=== PATIENT | male | born 1960 ===

== ENCOUNTER 2017-09-20 05:24 | Inpatient (IN) ==
[2017-09-18 13:16] LABS: Basophils # 0.1 10*3/uL (0.0-0.2); Basophils % 0.9 % (0.0-0.8); Eosinophils # 0.2 10*3/uL (0.0-0.87); Eosinophils % 2.6 % (0.00-10.9); Hematocrit 36.8 VOL% (42.0-52.0); Hemoglobin 12.5 GM/DL (14.0-18.0); Immature Granulocytes % 0.3 %; Immature Granulocytes Absolute 0.02 #; Lymphocytes # 1.8 10*3/uL (1.4-4.0); Lymphocytes % 27.5 % (21.2-54.2); Mean Corpuscular Hemoglobin 30 PG (27-34); Mean Corpuscular Volume 87.2 FL (87-102); Mean Platelet Volume 8.9 FL (9.6-12.0); Monocytes % 15.1 % (1.7-12.7); Neutrophils # 3.5 10*3/uL (1.4-7.4); Neutrophils % 53.6 % (38.7-73.9); Platelet Count 330 T/CUMM (130-400); Red Blood Count 4.22 MC/CUMM (3.8-5.5); Red Cell Distribution Width 15.5 % (9.3-17.3); White Blood Count 6.5 T/CUMM (4-12)
[2017-09-18 13:26] LABS: INR 0.9; Partial Thromboplastin Time 25.9 SECS (0-40)
[2017-09-18 13:28] LABS: Apearance,Urine Slightly Hazy (Clear); Bilirubin,Urine Negative (Negative); Blood, Urine Negative (Negative); Glucose,Urine (UA) Negative (Negative); Ketones,Urine 5 mg/dL (Negative); Mucus,Urine Many /LPF (Occasional); Nitrite,Urine Negative (Negative); Protein,Urine Negative; RBC,Urine 1 /HPF (0-4); Squamous Epithelial Cell,Urine Occasional /HPF (0-10); Urine Color Amber (Yellow); Urine Specific Gravity 1.023 (1.001-1.035); WBC,Urine <1 /HPF (0-6)
[2017-09-18 13:34] LABS: Albumin 3.6 G/DL (3.4-5.0); Bilirubin,Total 0.7 MG/DL (0.2-1.0); Calcium 9.2 MG/DL (8.5-10.1); Osmolality,Calculated 278.4 MOS/KG (273-304); Potassium 4.4 MMOL/L (3.5-5.1); Total Protein 7.3 G/DL (6.4-8.3)
[2017-09-20] MEDS ORDERED: CLINDAMYCIN INJ 900 MG in PREMIX 1 EACH IV ONE (06:00)
[2017-09-20] MEDS ORDERED: VANCOMYCIN INJ 1,000 MG in SODIUM CHLORIDE 0.9% 250 ML IV ONE (06:00)
[2017-09-20] MEDS ORDERED: LACTATED RINGERS 1,000 ML IV SCH ×2 (06:00→12:30)
[2017-09-20] MEDS ORDERED: ceFAZolin 2,000 MG in PREMIX 1 EACH IV ONE (06:00)
[2017-09-20] MEDS ORDERED: VANCOMYCIN 1,000 MG VIAL ONE (08:00)
[2017-09-20] MEDS ORDERED: CLINDAMYCIN INJ 50 ML IV ONE (08:00)
[2017-09-20] MEDS ORDERED: TRANEXAMIC ACID 1,000 MG/10 ML VIAL IV ONE (12:02)
[2017-09-20] MEDS ORDERED: BACITRACIN OINT 0.9 GM PACK TOP ONE (12:09)
[2017-09-20] MEDS ORDERED: ONDANSETRON 4 MG/2 ML VIAL IV PRN (12:19)
[2017-09-20] MEDS ORDERED: MORPHINE 2 MG/1 ML SYRINGE IV PRN ×2 (12:19)
[2017-09-20] MEDS ORDERED: KETOROLAC 30 MG/1 ML VIAL IV PRN (12:19)
[2017-09-20] MEDS ORDERED: MAGNESIUM HYDROXIDE SUSP 30 ML UDCUP PO PRN (12:19)
[2017-09-20] MEDS ORDERED: DEXTROSE 50% 25 GM/50 ML VIAL IV PRN (12:24)
[2017-09-20] MEDS ORDERED: GLUCAGON 1 MG VIAL IM PRN (12:24)
[2017-09-20] MEDS ORDERED: MIDAZOLAM 2 MG/2 ML VIAL ONE (12:38)
[2017-09-20] MEDS ORDERED: PROPOFOL 200 MG/20 ML VIAL IV ONE (12:39)
[2017-09-20] MEDS ORDERED: SODIUM CHLORIDE 0.9% 250 ML IV ONE (12:40)
[2017-09-20] MEDS ORDERED: NEOSTIGMINE 10 MG/10 ML VIAL ONE (12:40)
[2017-09-20] MEDS ORDERED: PHENYLEPHRINE 10 MG/1 ML VIAL IV ONE (12:40)
[2017-09-20] MEDS ORDERED: ACETAMINOPHEN 1,000 MG/100 ML VIAL IV ONE (12:40)
[2017-09-20] MEDS ORDERED: SEVOFLURANE 1 UNIT/15 MINUTE INH ONE (12:40)
[2017-09-20] MEDS ORDERED: fentaNYL 100 MCG/2 ML VIAL ONE (12:40)
[2017-09-20] MEDS ORDERED: ROCURONIUM 100 MG/10 ML VIAL IV ONE (12:40)
[2017-09-20] MEDS ORDERED: GLYCOPYRROLATE 0.4 MG/2 ML VIAL ONE (12:41)
[2017-09-20] MEDS: POLYVINYL ALCOHOL 1.4% OPH SOLN 15 ML BOTTLE BOTH EYES SCH ×3 (14:53→20:33)
[2017-09-20] MEDS: INSULIN LISPRO 100 UNIT/ML SUBCUT SCH ×2 (16:47→20:31)
[2017-09-20] MEDS: ceFAZolin 2,000 MG in PREMIX 1 EACH IV SCH (17:32)
[2017-09-20] MEDS: LISINOPRIL 20 MG TABLET PO SCH (20:31)
[2017-09-20] MEDS ORDERED: VANCOMYCIN INJ 1,000 MG in SODIUM CHLORIDE 0.9% 250 ML IV SCH (22:30)
[2017-09-21] MEDS: ceFAZolin 2,000 MG in PREMIX 1 EACH IV SCH (03:45)
[2017-09-21 05:31] LABS: Basophils % 0.4 % (0.0-0.8); Eosinophils % 0.1 % (0.00-10.9); Hematocrit 34.1 VOL% (42.0-52.0); Hemoglobin 11.7 GM/DL (14.0-18.0); Immature Granulocytes % 0.5 %; Immature Granulocytes Absolute 0.05 #; Lymphocytes # 1.3 10*3/uL (1.4-4.0); Lymphocytes % 13.7 % (21.2-54.2); Mean Corpuscular HGB Conc 34.3 GM/DL (32-36); Mean Corpuscular Hemoglobin 30 PG (27-34); Mean Corpuscular Volume 86.1 FL (87-102); Mean Platelet Volume 9.1 FL (9.6-12.0); Monocytes # 1.2 10*3/uL (0.11-0.8); Monocytes % 12.5 % (1.7-12.7); Neutrophils # 6.7 10*3/uL (1.4-7.4); Neutrophils % 72.8 % (38.7-73.9); Platelet Count 278 T/CUMM (130-400); Red Blood Count 3.96 MC/CUMM (3.8-5.5); Red Cell Distribution Width 15.4 % (9.3-17.3); White Blood Count 9.2 T/CUMM (4-12)
[2017-09-21 05:55] LABS: Calcium 8.2 MG/DL (8.5-10.1); Osmolality,Calculated 275.5 MOS/KG (273-304); Potassium 3.7 MMOL/L (3.5-5.1)
[2017-09-21] MEDS ORDERED: metFORMIN 500 MG TABLET PO SCH (08:00)
[2017-09-21] MEDS ORDERED: ASPIRIN EC 81 MG TABLET PO SCH (09:00)
[2017-09-21] MEDS: INSULIN LISPRO 100 UNIT/ML SUBCUT SCH ×2 (10:26→12:06)
[2017-09-21] MEDS: LISINOPRIL 20 MG TABLET PO SCH (10:35)
[2017-09-21] MEDS: POLYVINYL ALCOHOL 1.4% OPH SOLN 15 ML BOTTLE BOTH EYES SCH ×2 (10:37→14:19)
[2017-09-21 11:18] VITALS: BP 151/82
== END 2017-09-21 16:00 | disposition home or self-care (01) | DRG 483 ==
LOC: N.SDSINP 05:24 → N.3E 13:35
PROVIDERS: ADMIT Orthopaedic Surgery; ATTEND Orthopaedic Surgery

== ENCOUNTER 2020-11-24 05:44 | Inpatient (IN) ==
[2020-11-18 13:00] LABS: Basophils % 0.6 % (0.0-0.8); Bilirubin,Urine Negative (Negative); Blood, Urine Negative (Negative); Eosinophils # 0.1 10*3/uL (0.0-0.87); Eosinophils % 2.3 % (0.00-10.9); Glucose,Urine (UA) 150 mg/dL (Negative); Hematocrit 40.3 VOL% (42.0-52.0); Hemoglobin 13.9 GM/DL (14.0-18.0); Immature Granulocytes % 0.3 %; Immature Granulocytes Absolute 0.02 #; Ketones,Urine Negative (Negative); Lymphocytes # 2.2 10*3/uL (1.4-4.0); Lymphocytes % 35.2 % (21.2-54.2); Mean Corpuscular HGB Conc 34.5 GM/DL (32-36); Mean Corpuscular Volume 94.4 FL (87-102); Mean Platelet Volume 10.2 FL (9.6-12.0); Monocytes % 11.1 % (1.7-12.7); Neutrophils % 50.5 % (38.7-73.9); Nitrite,Urine Negative (Negative); Platelet Count 281 T/CUMM (130-400); Protein,Urine Negative; RBC,Urine <1 /HPF (0-4); Red Blood Count 4.27 MC/CUMM (3.8-5.5); Red Cell Distribution Width 12.1 % (9.3-17.3); Squamous Epithelial Cell,Urine Occasional /HPF (0-10); Urine Appearance CLEAR (Clear); Urine Color Yellow (Yellow); Urine Specific Gravity 1.009 (1.001-1.035); White Blood Count 6.2 T/CUMM (4-12)
[2020-11-18 13:12] LABS: INR 0.9; PT Patient Result 10.5 SECS (9.8-11.9); Partial Thromboplastin Time 25.3 SECS (23.9-33.8)
[2020-11-18 13:31] LABS: Albumin 3.8 G/DL (3.4-5.0); Bilirubin,Total 2.5 MG/DL (0.2-1.0); Osmolality,Calculated 279.8 MOS/KG (273-304); Potassium 4.1 MMOL/L (3.5-5.1); Total Protein 7.4 G/DL (6.4-8.2)
[2020-11-24] MEDS ORDERED: ACETAMINOPHEN 500 MG TABLET PO ONE (06:00)
[2020-11-24] MEDS ORDERED: FAMOTIDINE 20 MG TABLET PO ONE (06:00)
[2020-11-24] MEDS ORDERED: GABAPENTIN 400 MG CAPSULE PO ONE (06:00)
[2020-11-24] MEDS ORDERED: CLINDAMYCIN INJ 50 ML IV ONE (06:09)
[2020-11-24] MEDS ORDERED: VANCOMYCIN INJ 1,000 MG in SODIUM CHLORIDE 0.9% 250 ML IV ONE ×2 (06:30→18:30)
[2020-11-24] MEDS ORDERED: BUPIVACAINE SPINAL 0.75% 2 ML AMP SPINAL ONE (06:32)
[2020-11-24] MEDS ORDERED: DEXMEDETOMIDINE 200 MCG/2 ML VIAL ONE (06:32)
[2020-11-24] MEDS ORDERED: MIDAZOLAM 2 MG/2 ML VIAL ONE (06:32)
[2020-11-24] MEDS ORDERED: fentaNYL 100 MCG/2 ML VIAL ONE (06:32)
[2020-11-24] MEDS ORDERED: propofoL 200 MG/20 ML VIAL IV ONE (06:32)
[2020-11-24] MEDS ORDERED: LIDOCAINE 2% 5 ML VIAL ONE (06:32)
[2020-11-24] MEDS ORDERED: BACITRACIN OINT 0.9 GM PACK TOP ONE (06:33)
[2020-11-24] MEDS: LACTATED RINGERS 1,000 ML IV SCH ×5 (06:35→23:32)
[2020-11-24] MEDS ORDERED: ROPIVACAINE 0.5% 30 ML VIAL ONE (06:39)
[2020-11-24] MEDS ORDERED: SODIUM CHLORIDE 0.9% 100 ML IV ONE (07:23)
[2020-11-24] MEDS ORDERED: TRANEXAMIC ACID 1,000 MG/10 ML VIAL ONE (07:23)
[2020-11-24] MEDS ORDERED: POLYVINYL ALCOHOL 1.4% OPH SOLN 15 ML BOTTLE BOTH EYES PRN (08:24)
[2020-11-24] MEDS ORDERED: ONDANSETRON 4 MG/2 ML VIAL IV PRN (08:25)
[2020-11-24] MEDS ORDERED: MAGNESIUM HYDROXIDE SUSP 30 ML UDCUP PO PRN (08:25)
[2020-11-24] MEDS ORDERED: diphenhydrAMINE CAP 25 MG CAPSULE PO PRN (08:25)
[2020-11-24] MEDS ORDERED: ZALEPLON 5 MG CAPSULE PO PRN (08:25)
[2020-11-24] MEDS ORDERED: MORPHINE 4 MG/1 ML VIAL IV PRN (08:25)
[2020-11-24] MEDS ORDERED: GLUCAGON 1 MG VIAL IM PRN (08:27)
[2020-11-24] MEDS ORDERED: DEXTROSE 50% 25 GM/50 ML VIAL IV PRN (08:27)
[2020-11-24] MEDS: KETOROLAC 30 MG/1 ML VIAL IV SCH ×2 (15:18→22:07)
[2020-11-24] MEDS: INSULIN LISPRO 100 UNIT/ML SUBCUT SCH ×3 (15:56→22:07)
[2020-11-24] MEDS: CLINDAMYCIN INJ 900 MG in PREMIX 1 EACH IV SCH ×2 (16:15→23:29)
[2020-11-24] MEDS: DOCUSATE SODIUM 100 MG CAPSULE PO SCH ×2 (16:15→21:17)
[2020-11-24] MEDS: TOLNAFTATE 1% TOP SCH (18:05)
[2020-11-24] MEDS ORDERED: hydrALAZINE 20 MG/1 ML VIAL IV PRN (18:28)
[2020-11-24] MEDS: MORPHINE 4 MG/1 ML VIAL IV PRN (20:13)
[2020-11-24] MEDS: SIMVASTATIN 10 MG TABLET PO SCH (21:17)
[2020-11-25] MEDS: TOLNAFTATE 1% TOP SCH ×3 (01:37→23:14)
[2020-11-25] MEDS: KETOROLAC 30 MG/1 ML VIAL IV SCH ×2 (02:47→10:38)
[2020-11-25 05:16] LABS: Basophils % 0.3 % (0.0-0.8); Eosinophils # 0.1 10*3/uL (0.0-0.87); Eosinophils % 0.7 % (0.00-10.9); Hematocrit 34.5 VOL% (42.0-52.0); Hemoglobin 12.2 GM/DL (14.0-18.0); Immature Granulocytes % 0.4 %; Immature Granulocytes Absolute 0.04 #; Lymphocytes # 1.7 10*3/uL (1.4-4.0); Lymphocytes % 16.2 % (21.2-54.2); Mean Corpuscular HGB Conc 35.4 GM/DL (32-36); Mean Platelet Volume 9.4 FL (9.6-12.0); Monocytes % 13.5 % (1.7-12.7); Neutrophils % 68.9 % (38.7-73.9); Platelet Count 224 T/CUMM (130-400); Red Blood Count 3.67 MC/CUMM (3.8-5.5); Red Cell Distribution Width 11.9 % (9.3-17.3); White Blood Count 10.6 T/CUMM (4-12)
[2020-11-25 05:37] LABS: Calcium 8.3 MG/DL (8.5-10.1); Osmolality,Calculated 278.5 MOS/KG (273-304); Potassium 3.4 MMOL/L (3.5-5.1)
[2020-11-25] MEDS: LACTATED RINGERS 1,000 ML IV SCH (05:48)
[2020-11-25] MEDS: MORPHINE 4 MG/1 ML VIAL IV PRN (05:55)
[2020-11-25] MEDS: INSULIN LISPRO 100 UNIT/ML SUBCUT SCH ×4 (09:40→21:01)
[2020-11-25] MEDS: lisinopriL 20 MG TABLET PO SCH ×2 (09:41→20:59)
[2020-11-25] MEDS: DOCUSATE SODIUM 100 MG CAPSULE PO SCH ×2 (09:41→20:59)
[2020-11-25] MEDS: POTASSIUM CHLORIDE 20 MEQ TABLET PO PRN ×3 (09:41→15:25)
[2020-11-25] MEDS ORDERED: TUBERCULIN SKIN TEST 0.1 ML SYRINGE INTRADERM ONE (10:30)
[2020-11-25] MEDS ORDERED: KETOROLAC 30 MG/1 ML VIAL IV SCH (10:30)
[2020-11-25] MEDS: SIMVASTATIN 10 MG TABLET PO SCH (20:59)
[2020-11-25] MEDS: FONDAPARINUX 2.5 MG/0.5 ML SYRINGE SUBCUT SCH (21:04)
[2020-11-26 05:33] LABS: Basophils % 0.3 % (0.0-0.8); Eosinophils # 0.3 10*3/uL (0.0-0.87); Eosinophils % 2.9 % (0.00-10.9); Hematocrit 35.4 VOL% (42.0-52.0); Immature Granulocytes % 0.6 %; Immature Granulocytes Absolute 0.06 #; Lymphocytes % 18.7 % (21.2-54.2); Mean Corpuscular HGB Conc 36.7 GM/DL (32-36); Mean Corpuscular Volume 92.2 FL (87-102); Mean Platelet Volume 10.1 FL (9.6-12.0); Monocytes % 13.7 % (1.7-12.7); Neutrophils % 63.8 % (38.7-73.9); Platelet Count 223 T/CUMM (130-400); Red Blood Count 3.84 MC/CUMM (3.8-5.5); Red Cell Distribution Width 12.2 % (9.3-17.3); White Blood Count 10.8 T/CUMM (4-12)
[2020-11-26 06:01] LABS: Hypochromasia Slight; Microcytosis Slight
[2020-11-26 06:02] LABS: Platelet Estimate Adequate
[2020-11-26] MEDS: INSULIN LISPRO 100 UNIT/ML SUBCUT SCH ×4 (08:54→22:02)
[2020-11-26] MEDS: lisinopriL 20 MG TABLET PO SCH ×2 (09:30→20:55)
[2020-11-26] MEDS: DOCUSATE SODIUM 100 MG CAPSULE PO SCH ×2 (09:30→20:55)
[2020-11-26] MEDS: POTASSIUM CHLORIDE 20 MEQ TABLET PO PRN ×2 (09:31→11:44)
[2020-11-26] MEDS: TOLNAFTATE 1% TOP SCH ×2 (09:32→22:02)
[2020-11-26] MEDS ORDERED: DEXTROSE 50% 25 GM/50 ML VIAL IV PRN ×2 (14:47→14:50)
[2020-11-26] MEDS ORDERED: GLUCAGON 1 MG VIAL IM PRN (14:50)
[2020-11-26] MEDS: carvediloL 12.5 MG TABLET PO SCH (20:55)
[2020-11-26] MEDS: SIMVASTATIN 10 MG TABLET PO SCH (20:55)
[2020-11-26] MEDS: FONDAPARINUX 2.5 MG/0.5 ML SYRINGE SUBCUT SCH (20:56)
[2020-11-27 07:00] LABS: Basophils % 0.3 % (0.0-0.8); Eosinophils # 0.6 10*3/uL (0.0-0.87); Hematocrit 35.1 VOL% (42.0-52.0); Hemoglobin 12.5 GM/DL (14.0-18.0); Immature Granulocytes % 0.7 %; Immature Granulocytes Absolute 0.07 #; Lymphocytes # 1.6 10*3/uL (1.4-4.0); Lymphocytes % 16.2 % (21.2-54.2); Mean Corpuscular HGB Conc 35.6 GM/DL (32-36); Mean Corpuscular Volume 93.6 FL (87-102); Mean Platelet Volume 9.7 FL (9.6-12.0); Monocytes % 14.7 % (1.7-12.7); Neutrophils % 62.1 % (38.7-73.9); Platelet Count 266 T/CUMM (130-400); Red Blood Count 3.75 MC/CUMM (3.8-5.5); Red Cell Distribution Width 12.1 % (9.3-17.3)
[2020-11-27] MEDS: INSULIN LISPRO 100 UNIT/ML SUBCUT SCH ×2 (07:55→12:25)
[2020-11-27] MEDS ORDERED: metFORMIN 500 MG TABLET PO SCH (08:00)
[2020-11-27] MEDS ORDERED: GLYCERIN ADULT SUPP RECTAL ONE (09:00)
[2020-11-27] MEDS ORDERED: ASPIRIN EC 81 MG TABLET PO SCH (09:00)
[2020-11-27] MEDS: MORPHINE 4 MG/1 ML VIAL IV PRN (09:15)
[2020-11-27] MEDS: carvediloL 12.5 MG TABLET PO SCH (09:17)
[2020-11-27] MEDS: lisinopriL 20 MG TABLET PO SCH (09:17)
[2020-11-27] MEDS: DOCUSATE SODIUM 100 MG CAPSULE PO SCH (09:17)
[2020-11-27] MEDS: TOLNAFTATE 1% TOP SCH (10:16)
[2020-11-27 12:35] VITALS: BP 157/72
== END 2020-11-27 12:55 | DRG 470 ==
LOC: N.OR 05:44 → N.SDSINP 05:46 → N.3E 15:48
PROVIDERS: ADMIT Orthopaedic Surgery; ATTEND Orthopaedic Surgery